=== PATIENT | male | born 1985 | race African-American/Black ===

== ENCOUNTER 2018-04-12 10:49 | Emergency (ER) | payer OTHER ==
[~2018-04-12 10:49] MED LIST: Sodium Chloride Irrig Solution 250 ML BOT ONE
[2018-04-12] MEDS ORDERED: Lidocaine 1% 20 ML MDV ONE (11:10)
[2018-04-12] MEDS ORDERED: Triple Antibiotic Oint 1 GM Packet ONE (11:29)
== END 2018-04-12 11:38 | disposition home or self-care (01) ==
LOC: MADERS 10:49
DX: S61.211A Laceration without foreign body of left index finger without damage to nail, initial encounter (principal); F31.9 Bipolar disorder, unspecified; F41.9 Anxiety disorder, unspecified; F20.9 Schizophrenia, unspecified; Z87.891 Personal history of nicotine dependence; W26.9XXA Contact with unspecified sharp object(s), initial encounter
CPT/HCPCS: 12001; J2001